=== PATIENT | male | born 1950 | race Caucasian/White ===

== ENCOUNTER 2021-07-13 00:24 | Day surgery (SDC) | payer MEDICARE, OTHER, SELFPAY ==
[2021-06-29 13:37] VITALS: BMI 31.9
[2021-07-13 07:44] VITALS: BP 115/71; PULSE 77; RESP 19; TEMP 35.9; O2SAT 97; BMI 30.4
[2021-07-13] MEDS: LACTATED RINGERS 1,000 ML 150 ML IV CONT (07:47)
--- NOTE | 2021-07-13 07:54 | WPDANESEPPF ---
Anes - Initial Pre Proc Eval Procedure: Operation Date: 07/13/21 08:30 Proposed Procedures p Screening Colonoscopy - Tramaine Zaragoza MD Date/Time: 07/13/21 07:54 Surgeon: Tramaine Zaragoza MD Pre Op Diagnosis: hx of colon polyps Patient Data Age: 70 Gender: M Height: 1.83 m Weight: 101.7 kg Last Vital Signs Temp 35.9 C L 07/13/21 07:44 Pulse 77 07/13/21 07:44 Resp 19 07/13/21 07:44 BP 115/71 07/13/21 07:44 Pulse Ox 97 07/13/21 07:44 Allergies Allergy/AdvReac Type Severity Reaction Status Date / Time No Known Allergies Allergy Verified 07/13/21 07:43 Home Medications Medication Instructions Recorded Confirmed Type allopurinol 300 mg tablet 300 mg PO DAILY #90 tablet 12/01/20 07/13/21 Rx atorvastatin 10 mg tablet 10 mg PO DAILY #90 tablet 03/28/21 07/13/21 Rx gabapentin 100 mg capsule 100 mg PO TID #270 cap 04/05/21 07/13/21 Rx metformin 500 mg tablet,extended See Rx Instructions .ROUTE 04/05/21 07/13/21 Rx release 24 hr .COMPLEX #180 tablet empagliflozin 25 mg tablet 25 mg PO DAILY #90 tablet 05/03/21 07/13/21 Rx Patient hx anesthesia problems: none Family hx anesthesia problems: none Results Review: All pre-operative results and documents have been reviewed as part of the pre-operative evaluation. [facility] Past Medical History Medical History Essential tremor Gout Mixed hyperlipidemia Obesity (BMI 30.0-34.9) Obstructive sleep apnea (adult) (pediatric) Other idiopathic peripheral autonomic neuropathy Type 2 diabetes mellitus without complications Urinary incontinence Surgical History Surgical History History of cervical discectomy (~2012) anterior spinal discectomy with osteophytectomy of cervical interspace 6/7 History of colonoscopy (~06/19/15) History of prostate surgery Family History Family History Mother Patient's mother is Family history of chronic obstructive pulmonary disease Father Patient's father is Malignant neoplasm of prostate Social History Social History Smoking status: Never smoker Alcohol intake: never Substance use: never Substance use type: does not use Living arrangements: with family Spiritual care concerns: No Anes - Eval Final PreProcedure Day of Procedure 07/13/21 07:54 Patient weight: obese Heart: regular rate and rhythm Lungs: clear to auscultation Airway: Mallampati scale class II Neurological: alert and oriented Last oral intake: >/= 8 hours ASA classification: III Emergent: no Anesthetic plan: proceed Anesthesia type and monitoring: general GIVS and standard monitoring Results Review: All pre-operative results and documents have been reviewed as part of the pre-operative evaluation. Informed Consent: The patient's anesthetic plan and its attendant risks and benefits were discussed with the patient/family/POA. Questions were solicited and answers provided to the satisfaction of the patient/family/POA.
[2021-07-13 08:21] LABS: Glucose Point of Care 165 mg/dl (65-105)
--- NOTE | 2021-07-13 08:21 | WPDGICN ---
Assessment and Plan Assessment and plan (1) Polyp of colon: Code(s): K63.5 - Polyp of colon Status: Acute Assessment and Plan: Patient has a history of adenomatous colon polyp removed from the colon 2015. Plan is for surveillance colonoscopy now and at 5 year intervals. GI Consult Note Consult date/time: 07/13/21 08:21 HPI: Aravind Mosher is a 70 year old male Presents for screening colonoscopy. Patient has a history of colon polyps at prior colonoscopy in 2016. Patient reports his current weight appetite bowel movements are normal. His family history is noncontributory he presents today for surveillance examination. Review of Systems Review of Systems: All systems reviewed & are unremarkable except as noted in HPI and below PMFSH Past Medical History Medical History Essential tremor Gout Mixed hyperlipidemia Obesity (BMI 30.0-34.9) Obstructive sleep apnea (adult) (pediatric) Other idiopathic peripheral autonomic neuropathy Type 2 diabetes mellitus without complications Urinary incontinence Surgical History Surgical History History of cervical discectomy (~2012) anterior spinal discectomy with osteophytectomy of cervical interspace 6/7 History of colonoscopy (~06/19/15) History of prostate surgery Family History Family History Mother Patient's mother is Family history of chronic obstructive pulmonary disease Father Patient's father is Malignant neoplasm of prostate Social History Social History Smoking status: Never smoker Alcohol intake: never Substance use: never Substance use type: does not use Living arrangements: with family Spiritual care concerns: No Meds Home Medications and Allergies Home Medications Medication Instructions Recorded Confirmed Type allopurinol 300 mg tablet 300 mg PO DAILY #90 tablet 12/01/20 07/13/21 Rx atorvastatin 10 mg tablet 10 mg PO DAILY #90 tablet 03/28/21 07/13/21 Rx gabapentin 100 mg capsule 100 mg PO TID #270 cap 04/05/21 07/13/21 Rx metformin 500 mg tablet,extended See Rx Instructions .ROUTE 04/05/21 07/13/21 Rx release 24 hr .COMPLEX #180 tablet empagliflozin 25 mg tablet 25 mg PO DAILY #90 tablet 05/03/21 07/13/21 Rx Allergies Allergy/AdvReac Type Severity Reaction Status Date / Time No Known Allergies Allergy Verified 07/13/21 07:43 Vital Signs Vital Signs - 24 hr 07/13/21 07:44 Temperature 96.7 F L Pulse Rate 77 Respiratory Rate 19 Blood Pressure 115/71 Pulse Oximetry 97 Exam Narrative: Physical exam reveals patient to be alert. Vital signs stable. HEENT exam is unremarkable. Patient is anicteric. Lungs are clear to auscultation and percussion. Heart is without murmur or extra sounds. Abdominal exam bowel sounds are present soft nontender with no hepatosplenomegaly. Digital external rectal exam is normal.
[2021-07-13 08:48] VITALS: BP 115/72; PULSE 72; RESP 20; O2SAT 95
[2021-07-13 08:58] VITALS: BP 106/73; PULSE 77; RESP 19; O2SAT 98
[2021-07-13 09:08] VITALS: BP 111/77; PULSE 68; RESP 22; O2SAT 99
== END 2021-07-13 09:12 | disposition home or self-care (01) ==
PROVIDERS: PCP Family Medicine; Visit Provider Internal Medicine Gastroenterology
PROC: 0DJD8ZZ Inspection of Lower Intestinal Tract, Via Natural or Artificial Opening Endoscopic (ICD-10-PCS; CPT 45378; principal; 2021-07-13 08:30)
DX: Z12.11 Encounter for screening for malignant neoplasm of colon (principal); Z86.010 Personal history of colon polyps; K64.8 Other hemorrhoids; K57.30 Diverticulosis of large intestine without perforation or abscess without bleeding; G25.0 Essential tremor; M10.9 Gout, unspecified; G47.33 Obstructive sleep apnea (adult) (pediatric); E78.5 Hyperlipidemia, unspecified; G60.8 Other hereditary and idiopathic neuropathies; E11.9 Type 2 diabetes mellitus without complications; Z79.84 Long term (current) use of oral hypoglycemic drugs; E66.9 Obesity, unspecified; Z68.30 Body mass index [BMI] 30.0-30.9, adult
CPT/HCPCS: G0105; 82948; J2704; J7120

== ENCOUNTER → 2022-11-07 08:37 | Outpatient (CLI) | payer MEDICARE, SELFPAY ==
--- NOTE | ~2022-11-07 | MR_ITS ---
EXAMINATION: MR lumbar spine wo con DATE: 11/07/2022 09:19 INDICATION: Low back pain radiating down both legs. Other idiopathic peripheral autonomic neuropathy. TECHNIQUE: Magnetic resonance imaging (MRI) of the lumbar spine was performed without intravenous con trast. Sequences included sagittal T2-weighted FSE, sagittal T2-weighted FS FSE, sagittal T1-weighted FSE, and axial T2-weighted FSE. COMPARISON: Lumbar spine radiographs 04/15/2011 FINDINGS: Bone alignment is normal. There is mild chronic anterior wedging of T12 and L1 vertebral kylah dies, likely physiologic. There are Schmorl's nodes at T10-T11 and T11-T12. There is mildly decreased disc height at L2-L3 and L3-L4. Epidural lipomatosis is noted. There is ligamentum flavum hypertroph y at the disc levels from L2-L3 through L5-S1. The osseous central spinal canal is developmentally sm all. The distal spinal cord signal intensity is normal. The conus medullaris is at T12. The following disc levels are specifically discussed: L1-L2: The disc is mildly bulging. There is moderate bilateral facet joint osteoarthritis. There is m ild bilateral neural foraminal stenosis. There is no central canal stenosis. L2-L3: The disc is bulging and has an annular fissure. There is severe bilateral facet joint osteoart hritis. There is mild right and moderate left neural foraminal stenosis. There is mild central canal stenosis. L3-L4: The disc is bulging and has an annular fissure. There is severe bilateral facet joint osteoart hritis. There is moderate bilateral neural foraminal stenosis. There is moderate central canal stenos is. L4-L5: The disc is bulging and has an annular fissure. There is severe bilateral facet joint osteoart hritis. There is moderate bilateral neural foraminal stenosis. There is severe central canal stenosis . L5-S1: The disc is bulging as an annular fissure. There is severe bilateral facet joint osteoarthriti s. There is mild bilateral neural foraminal stenosis. There is mild central canal stenosis. IMPRESSION: 1. Severe lumbar spondylosis. Reviewed, dictated and finalized at location A.
== END ==
PROVIDERS: PCP Family Medicine; Visit Provider Nurse Practitioner Family
DX: G90.09 Other idiopathic peripheral autonomic neuropathy (principal); M47.896 Other spondylosis, lumbar region
CPT/HCPCS: 72148

== ENCOUNTER 2023-02-04 06:29 | Day surgery (SDC) | payer MEDICARE, SELFPAY ==
--- NOTE | ~2023-02-04 | XR_ITS ---
EXAMINATION: XR fluoroscopy no charge DATE: 02/04/2023 7:30 CDT INDICATION: FERN L4-5 TRANSFORAMINAL EPIDURAL STERIOD INJ . TECHNIQUE: 4 fluoroscopic images, including cine clips of 12 and 20 images of the lumbar spine were o btained during bilateral L4-5 transforaminal epidural steroid injection performed by the surgeon. I w as not present in the operating room. Fluoroscopy exposure time was 12.7 seconds. Air Kerma 11.72 mGy . COMPARISON: None FINDINGS: Needle access laterally at L4 followed by contrast injection. IMPRESSION: Fluoroscopic documentation of bilateral L4-5 transabdominal epidural steroid injection. Please refer to the operative note for complete procedural details . Reviewed, dictated and finalized at location K. IMPRESSION: Fluoroscopic documentation of bilateral L4-5 transabdominal epidural steroid in [facility]. Please refer to the operative note for complete procedural details .
[2023-02-04 07:12] VITALS: BP 134/86; PULSE 67; RESP 14; TEMP 36.3; O2SAT 98
--- NOTE | 2023-02-04 07:21 | PM.HPGS ---
History of Present Illness History of Present Illness Consent: Risks, benefits, and alternatives have been discussed and questions answered. Patient agrees to proceed with procedure. Chief complaint: Spinal Stenosis with Neurogenic Claudication Narrative: Aravind Mosher is a 72 year old male in his typical state of health and no new medical, physiologic or symptomatic concerns with documented lumbar spinal stenosis and radiculopathy here for bilateral L4-5 transforaminal epidural steroid injection Under fluoroscopic guidance. Review of Systems Review of Systems: All systems reviewed & are unremarkable except as noted in HPI and below Constitutional: Constitutional: Reports as per HPI Cardiovascular: Cardiovascular: Reports no additional cardiovascular complaints Respiratory: Respiratory: Reports no additional respiratory complaints Musculoskeletal: Musculoskeletal: Reports as per HPI Neurologic: Reports system reviewed and no additional complaints, except as documented Psychiatric: Psychiatric: Reports no additional psychiatric complaints Allergic/Immunologic: Allergic/Immunologic: Reports no additional allergic/immunologic complaints [facility] Past Medical History Medical History Essential tremor Gout Mixed hyperlipidemia Obesity (BMI 30.0-34.9) Obstructive sleep apnea (adult) (pediatric) Other idiopathic peripheral autonomic neuropathy Type 2 diabetes mellitus without complications Urinary incontinence Surgical History Surgical History History of cervical discectomy (~2012) anterior spinal discectomy with osteophytectomy of cervical interspace 6/7 History of colonoscopy (~06/19/15) History of prostate surgery Family History Family History Mother Patient's mother is Family history of chronic obstructive pulmonary disease Father Patient's father is Malignant neoplasm of prostate Social History Social History Smoking status: Never smoker Alcohol intake: current Drinks per week: 12 Substance use: never Substance use type: does not use Lack of Transportation: No Lack of Food: Never True Current Housing: I Have Housing Concerned About Future Housing: No Difficulty Paying Gas/Electric Bills: No Difficulty Paying for Meds: No Currently Unemployed: No Education: Master's Degree or Higher Living arrangements: alone Spiritual care concerns: No Meds Home Medications and Allergies Home Medications Medication Instructions Recorded Confirmed Type allopurinol 300 mg tablet 300 mg PO DAILY #90 tabs 11/19/21 02/04/23 Rx metformin 500 mg tablet,extended See Rx Instructions .Route 04/16/22 02/04/23 Rx release 24 hr .COMPLEX #180 tabs empagliflozin 25 mg tablet 25 mg PO DAILY #90 tabs 10/14/22 02/04/23 Rx (Jardiance) atorvastatin 10 mg tablet 10 mg PO DAILY #90 tabs 01/09/23 02/04/23 Rx pregabalin 150 mg capsule 150 mg PO BID 30 days #60 caps 01/23/23 02/04/23 Rx Allergies Allergy/AdvReac Type Severity Reaction Status Date / Time No Known Allergies Allergy Verified 02/04/23 07:11 Vital Signs Vital Signs - 24 hr 02/04/23 07:12 Temperature 97.4 F L Pulse Rate 67 Respiratory Rate 14 Blood Pressure 134/86 Pulse Oximetry 98 Oxygen Delivery Room Air Exam Const: General: cooperative, healthy appearing, comfortable, no acute distress, well developed, alert, awake and Physically active Nutritional Appearance: well nourished Orientation/consciousness: patient oriented x3 HENMT: Head: normal to inspection Eyes: General: appearance normal, both eyes and all related structures Neck: Neck: normal visual inspection Chest: Chest palpation & inspection: normal inspection of the chest Resp: Effort & Inspection: normal resp
--- NOTE | 2023-02-04 07:27 | WPDHPUPDATE1 ---
History and Physical Update Update Date/Time: 02/04/23 07:27 History and Physical has been reviewed, including an updated exam of the patient. There are NO changes in the patient's condition. Risks, benefits, and alternatives have been discussed and questions answered. Patient agrees to proceed with procedure.
[2023-02-04 07:45] VITALS: BP 137/74; PULSE 64; RESP 16; O2SAT 96
[2023-02-04] MEDS: LIDOCAINE HCL 1% PF INJ 5 ML VIAL 3 ML INFILTRATE (07:46)
[2023-02-04] MEDS: LIDOCAINE HCL 2% PF INJ 5 ML VIAL 4 ML INFILTRATE (07:51)
[2023-02-04 07:55] VITALS: BP 142/75; PULSE 74; RESP 16; O2SAT 95
[2023-02-04 07:56] VITALS: BP 149/88; PULSE 75; RESP 14; O2SAT 100
--- NOTE | 2023-02-04 08:01 | W.PM.PROC2 ---
Procedure Note - Detailed Date of Procedure 02/04/23 Pre-op Diagnosis Spinal Stenosis with Neurogenic Claudication, Lumbosacral Radiculopathy Post-op Diagnosis Same Procedure Performed Bilateral L4-5 transforaminal epidural steroid injection under fluoroscopic guidance with contrast control. Surgeon Nate Norton MD Anesthesia Local Indications Bilateral lumbosacral radiculopathy and neurogenic claudication right greater than left. Description of Procedure INFORMED CONSENT: Risks, benefits and alternatives to the procedure were discussed in detail with the patient who expressed explicit understanding and consent to proceed. Patient was informed verbally and in written form regarding the risks associated with the procedure including the low risk of serious infection, bleeding/bruising, allergic reaction, nerve or organ injury, paralysis, procedural site pain or discomfort, worsening pain and/or mobility, failure to treat and/or disfigurement. The patient expressed explicit understanding and consent to proceed. All materials required for the procedure were available prior to procedure start. Site and side was marked prior to procedure and confirmed in the presence of the patient. PROCEDURE IN DETAIL: The patient was brought to the procedural suite and placed in the prone position. Patient was made comfortable with use of pillows under the head/chest, hips and ankles. Skin overlying the injection site was prepared broadly with ChloraPrep applicator and draped in a sterile manner. Aseptic technique was employed throughout. The endplates of the vertebral body at the site of interest were aligned in the AP view. Ipsilateral oblique angulation was utilized to better visualize the neuroforamen of interest. Local anesthesia was established by infiltration with approximately 5 mL of 2% lidocaine via a 1-1/2 inch 27-gauge needle. A 22-gauge 5.0 inch Zuleyka (pencil point) spinal needle was advanced until the needle approached the 6 o'clock position on the pedicle just superior to the exiting nerve root. on the right at L4-5. Lateral view was utilized to confirm appropriate position of the needle tip within the superior and posterior portion of the respective foramen. In an AP view, 1 mL of Omnipaque 300 contrast medium was injected after negative aspiration for CSF, blood or other bodily fluid, showing appropriate neurogram without evidence of intravascular or intrathecal spread of contrast. Digital subtraction imaging was used with an additional 1ml of the same contrast medium to confirm absence of intravascular contrast spread. A 1mL solution containing 5 mg of dexamethasone was injected after negative repeat aspiration. Appropriate spread of the injectate was confirmed with washout of previously injected contrast. No parasthesias were elicited. Needle was removed completely intact without difficulty. The same exact procedure was repeated for all remaining levels on the contralateral side, left L4-5 neural foramen, modified as necessary to accommodate for the new target location with identical findings and results and no evidence of complication. Images were saved and documented in the patient chart. Patient's skin was cleaned and sterile bandage applied. The patient tolerated the procedure well. The patient was transported to the recovery area in stable condition where they were observed for an appropriate amount of time prior to discharge, without evidence of complication. The patient was instructed to avoid excessive activity for the next 48 hours, including climbing and frequent use of stairs. Showers only for 48 hours. They were instructed not to drive or operate heavy machinery for 24 hours. They are to monitor for severe headaches, fevers, chills, night sweats, erythema/swelling at the site or any other signs of infection, bleeding/bruising, bowel or bladder changes as well as new pain, weakness or numbness in the upper or lower extremity. Should they notice
== END 2023-02-04 08:08 | disposition home or self-care (01) ==
PROVIDERS: PCP Family Medicine; Visit Provider Anesthesiology Pain Medicine
PROC: (CPT 64483; principal; 2023-02-04 07:30)
DX: M48.062 Spinal stenosis, lumbar region with neurogenic claudication (principal); M54.17 Radiculopathy, lumbosacral region
CPT/HCPCS: 64483 ×2; 99199

== ENCOUNTER 2023-02-25 08:44 | Emergency (ER) | payer MEDICARE, SELFPAY ==
[2023-02-25 08:46] VITALS: PULSE 94; RESP 18; TEMP 36.9; O2SAT 98
[2023-02-25 09:20] LABS: Appearance Urine Clear (Clear); Bilirubin Urine Negative (Negative); Blood Urine Negative (Negative); Color Urine Yellow (Yellow); Glucose Urine UA 3+ mg/dL (Negative); Ketones Urine Negative (Negative); Leukocyte Esterase Ur Negative LEU/UL (Negative); Nitrate Urine Negative (Negative); Protein Urine Negative (Negative); Specific Grav Ur 1.023 (1.001-1.035); Urobilinogen Urine 0.2 mg/dL (<2.0); pH Urine 5.5 (5.0-9.0)
[2023-02-25 09:21] LABS: Add Urine Microscopic? NO
--- NOTE | 2023-02-25 09:48 | ED.MALEGU ---
HPI - Male Genitourinary General Chief complaint: Urogenital-Male <MAXX Jang Last Filed: 02/25/23 11:18> Stated complaint: unable to urinate post op <Marietta Padron PA-C - Last Filed: 02/25/23 11:18> Time Seen by Provider: 02/25/23 08:55 <MAXX Jang Last Filed: 02/25/23 11:18> Source: patient <MAXX Jang Last Filed: 02/25/23 11:18> Mode of arrival: ambulatory <MAXX Jang Last Filed: 02/25/23 11:18> Limitations: no limitations <MAXX Jang Last Filed: 02/25/23 11:18> History of Present Illness HPI Narrative: Patient is a 72-year-old male who presents the ED with report of difficulty urinating. Patient reports he underwent what sounds like a laminectomy of L4, L5, S1 yesterday by Dr. Santi jay/ neurosurgery at [facility]. He states he became impatient after the surgery and did not want to wait to be able to urinate after the surgery. He states he was up all night last night attempting to urinate, but was only able to dribble out small amounts. Reporting pain and pressure in his lower abdomen. He was unable to urinate again this morning which prompted his presentation. He has not tried contacting his surgeon. He reports some soreness in his lower back from surgery, but otherwise states he has been doing well since the surgery. He denies any fevers, hematuria, nausea, vomiting, numbness, weakness, saddle anesthesia. <MAXX Jang Last Filed: 02/25/23 11:18> Related Data Allergies/Adverse reactions: Allergies Allergy/AdvReac Type Severity Reaction Status Date / Time No Known Allergies Allergy Verified 02/25/23 08:52 <MAXX Jang Last Filed: 02/25/23 11:18> Review of Systems Review of Systems: CONSTITUTIONAL: Denies fever, chills, or sweats. CARDIOVASCULAR: Denies chest pain. RESPIRATORY: Denies dyspnea. GASTROINTESTINAL: See HPI. GENITOURINARY: See HPI. SKIN: Denies rash or itching. MUSCULOSKELETAL: See HPI. NEUROLOGIC: Denies saddle anesthesia, headache, numbness, or weakness. <Marietta Padron PA-C - Last Filed: 02/25/23 11:18> All systems reviewed & are unremarkable except as noted in HPI and below <Marietta Padron PA-C - Last Filed: 02/25/23 11:18> [facility] Past Medical History Medical History: Medical History Essential tremor Gout Mixed hyperlipidemia Obesity (BMI 30.0-34.9) Obstructive sleep apnea (adult) (pediatric) Other idiopathic peripheral autonomic neuropathy Type 2 diabetes mellitus without complications Urinary incontinence <Marietta Padron PA-C - Last Filed: 02/25/23 11:18> Surgical History Surgical History: Surgical History History of cervical discectomy (~2012) anterior spinal discectomy with osteophytectomy of cervical interspace 6/7 History of colonoscopy (~06/19/15) History of prostate surgery <Marietta Padron PA-C - Last Filed: 02/25/23 11:18> Family History Family History: Family History Mother Patient's mother is Family history of chronic obstructive pulmonary disease Father Patient's father is Malignant neoplasm of prostate <Marietta Padron PA-C - Last Filed: 02/25/23 11:18> Social History Social History: Social History Smoking status: Never smoker Alcohol intake: current Drinks per week: 12 Substance use: never Substance use type: does not use Lack of Transportation: No Lack of Food: Never True Current Housing: I Have Housing Concerned About Future Housing: No Difficulty Paying Gas/Electric Bills: No Difficulty Paying for Meds: No Currently Unemployed: No Education:
[2023-02-25 09:53] LABS: Alanine Aminotransferase 37 U/L (6-50); Albumin Level 4.8 g/dL (3.5-5.1); Alkaline Phosphatase 56 U/L (38-126); Anion Gap 8 mmol/L (8-16); Aspartate Amino Transferase 33 U/L (17-59); Bilirubin,Total 0.6 mg/dL (0.2-1.3); Blood Urea Nitrogen 21 mg/dL (9-20); Carbon Dioxide 29 mmol/L (22-30); Chloride 101 mmol/L (98-107); Estimated CRCL calculation 82 ml/min; Estimated Glomerular Filt Rate > 60; Glucose 178 mg/dL (65-110); Potassium 4.6 mmol/L (3.4-5.0); Sodium 138 mmol/L (137-145)
[2023-02-25 09:54] LABS: Basophils Percent Auto 0.2 % (0.2-1.2); Eosinophils Percent Auto 0.1 % (0-4.4); Hematocrit 43.9 % (42.0-52.0); Hemoglobin 14.4 g/dL (14.0-18.0); Immature Granulocyte Absolute 0.03 K/mm3 (0.00-0.031); Immature Granulocyte Percent A 0.2 % (0-0.5); Lymphocytes Absolute Auto 1.08 K/mm3 (0.9-3.2); Lymphocytes Percent Auto 8.7 % (18.3-44.2); Mean Corpuscular HGB Conc 32.8 g/dl (32-36); Mean Corpuscular Hemoglobin 30.6 pg (26-34); Mean Corpuscular Volume 93.2 fl (80-100); Mean Platelet Volume 10.3 fl (7.4-10.4); Monocytes Absolute Auto 1.3 K/mm3 (0.1-0.6); Monocytes Percent Auto 10.3 % (2.6-8.5); Neutrophils Percent Auto 80.5 % (45.5-73.1); Platelet Count Result 229 k/mm3 (150-375); Red Blood Count 4.71 M/mm3 (4.6-6.20); White Blood Count 12.4 K/mm3 (4.5-10.0)
[2023-02-25] MEDS: TAMSULOSIN HCL 0.4 MG CAPSULE PO (11:16)
[2023-02-25 11:23] VITALS: BP 153/81; PULSE 82; RESP 18; O2SAT 99
== END 2023-02-25 11:25 | disposition home or self-care (01) ==
PROVIDERS: Emergency Medicine; Emergency Provider Physician Assistant; PCP Family Medicine
DX: N99.89 Other postprocedural complications and disorders of genitourinary system (principal); R33.8 Other retention of urine; E78.2 Mixed hyperlipidemia; E11.43 Type 2 diabetes mellitus with diabetic autonomic (poly)neuropathy; G47.33 Obstructive sleep apnea (adult) (pediatric); M10.9 Gout, unspecified; E66.9 Obesity, unspecified; Z68.32 Body mass index [BMI] 32.0-32.9, adult; Z79.84 Long term (current) use of oral hypoglycemic drugs
CPT/HCPCS: 36415; 51702; 80053; 81003; 85025; 99283; A9270

== ENCOUNTER 2023-08-05 13:39 | Outpatient (CLI) | payer MEDICARE, SELFPAY ==
--- NOTE | 2023-08-05 14:15 | NEURO_ITS ---
iMPRESSION: # Known diabetic complains of gait dysfunction. # No motor or sensory electrical responses obtained. # Needle/EMG exam neurogenic. # Compatible with severe neuropathy. Nerve Conduction Studies Anti Sensory Summary Table Stim Site NR Peak (ms) P-T Amp (?V) Site1 Site2 Delta-P (ms) Dist (cm) Jeffrey (m/s) Left Saphenous Anti Sensory (Ant Med Mall) NO RESPONSE 14cm NR 14cm Ant Med Mall 0.0 Right Saphenous Anti Sensory (Ant Med Mall) 14cm NR 14cm Ant Med Mall 0.0 Left Sup Fibular Anti Sensory (Ant Lat Mall) NO RESPONSE 14 cm NR 14 cm Ant Lat Mall 16.0 Right Sup Fibular Anti Sensory (Ant Lat Mall) NO RESPONSE 14 cm NR 14 cm Ant Lat Mall 16.0 Left Sural Anti Sensory (Lat Mall) NO RESPONSE Calf NR Calf Lat Mall 16.0 Right Sural Anti Sensory (Lat Mall) NO RESPONSE Calf NR Calf Lat Mall 16.0 Motor Summary Table Stim Site NR Onset (ms) O-P Amp (mV) Site1 Site2 Delta-0 (ms) Dist (cm) Jeffrey (m/s) Left Peroneal Motor (Vastus Med) NO RESPONSE Ankle NR Popit Ankle 0.0 Popit NR Right Peroneal Motor (Vastus Med) NO RESPONSE Ankle NR Popit Ankle 0.0 Popit NR Left Tibial Motor (Abd Us Brev) NO RESPONSE Ankle NR Knee NR Right Tibial Motor (Abd Us Brev) NO RESPONSE Ankle NR Knee Ankle 0.0 Knee NR F Wave Studies NR F-Lat (ms) L-R F-Lat (ms) Left Peroneal (Mrkrs) (EDB) NO RESPONSE NR Right Peroneal (Mrkrs) (EDB) NO RESPONSE NR Left Tibial (Mrkrs) (Abd Hallucis) NO RESPONSE NR Right Tibial (Mrkrs) (Abd Hallucis) NO RESPONSE NR EMG Side Muscle Nerve Root Ins Act Fibs Amp Dur Recrt Comment Right AntTibialis Dp Br Fibular L4-5 Nml Nml Nml >12ms +1 Right Gastroc Tibial S1-2 Nml Nml Nml >12ms +2 Right Fibularis Long Sup Br Fibular L5-S1 Nml Nml Nml >12ms +2 Right Flex Dig Long Tibial L5-S2 Nml Nml Nml >12ms +3 Right Ext Dig Brev Dp Br Fibular L5, S1 Nml Nml Nml >12ms +3 Left AntTibialis Dp Br Fibular L4-5 Nml Nml Nml >12ms +1 Left Gastroc Tibial S1-2 Nml Nml Nml >12ms +2 Left Fibularis Long Sup Br Fibular L5-S1 Nml Nml Nml >12ms +2 Left Flex Dig Long Tibial L5-S2 Nml Nml Nml >12ms +3 Left Ext Dig Brev Dp Br Fibular L5, S1 Nml Nml Nml >12ms +3 MTDD
== END 2023-08-05 13:40 | disposition home or self-care (01) ==
PROVIDERS: PCP Family Medicine; Visit Provider Nurse Practitioner Family
DX: G90.09 Other idiopathic peripheral autonomic neuropathy (principal)
CPT/HCPCS: 95886; 95911

== ENCOUNTER 2024-05-10 11:30 | Emergency (ER) | payer MEDICARE, SELFPAY ==
[2024-05-10 12:06] VITALS: BP 138/79; PULSE 76; RESP 16; TEMP 35.9; O2SAT 99
--- NOTE | 2024-05-10 12:54 | ED.URI ---
HPI - URI/Sore Throat General Chief Complaint: Upper Respiratory Infection Stated Complaint: Cough Time Seen by Provider: 05/10/24 12:54 Source: patient Mode of arrival: ambulatory Limitations: no limitations History of Present Illness HPI Narrative: 73 yo M presents with c/o cough, chest congestion for 2 wks. Coughing worse at night. Concerned he may have pneumoina. AFebrile. All systems reviewed and negative except as noted above. Related Data Allergies Allergy/AdvReac Type Severity Reaction Status Date / Time No Known Allergies Allergy Verified 05/10/24 12:14 Review of Systems Review of Systems: CONSTITUTIONAL: Denies fever, chills, or sweats. EYES: Denies visual changes, redness, or discharge. ENT: Denies rhinorrhea, congestion, sore throat, or otalgia. CARDIOVASCULAR: Denies chest pain, palpitations, or edema. RESPIRATORY: Reports cough, chest congestion, dyspnea with exertion GASTROINTESTINAL: Denies abdominal pain, nausea, vomiting, or diarrhea. GENITOURINARY: Denies dysuria or hematuria. SKIN: Denies rash or itching. MUSCULOSKELETAL: Denies back pain, joint pain, or myalgia. NEUROLOGIC: Denies headache, numbness, or weakness. PSYCHIATRIC: Denies anxiety or depression. All other systems reviewed are negative, except as documented in HPI. FOR[facility], [facility] Past Medical History Medical History (Updated 05/10/24 @ 13:01 by Jeimy Beaulieu NP) Peripheral neuropathy Carpal tunnel syndrome on both sides Lumbosacral radiculopathy Diabetic polyneuropathy Lumbosacral radiculopathy Obesity (BMI 30.0-34.9) Urinary incontinence Gout Essential tremor Mixed hyperlipidemia Obstructive sleep apnea (adult) (pediatric) Other idiopathic peripheral autonomic neuropathy Type 2 diabetes mellitus without complications Surgical History Surgical History History of lumbar laminectomy History of prostate surgery History of colonoscopy (~06/19/15) History of cervical discectomy (~2012) anterior spinal discectomy with osteophytectomy of cervical interspace 6/7 Family History Family History Mother Patient's mother is Family history of chronic obstructive pulmonary disease Father Patient's father is Malignant neoplasm of prostate Social History Social History Smoking status: Never smoker Alcohol intake: current Drinks per week: 14 Substance use: never Substance use type: does not use Do You Feel Safe in your Home?: Yes Lack of Transportation: No Lack of Food: Never True Current Housing: I Have Housing Concerned About Future Housing: No Difficulty Paying Gas/Electric Bills: No Difficulty Paying for Meds: No Currently Unemployed: No Education: Master's Degree or Higher Difficulty w/ Childcare or Family Care: No Living arrangements: alone Spiritual care concerns: No Comments At time of signature, agree with nursing past medical, surgical, social and family history. There is no relevant family history pertinent to the presenting complaint. Exam Narrative: GENERAL: This is a well-nourished, well-developed patient, in no apparent distress. HEAD: normocephalic, atraumatic. EYES: PERRL. Sclera clear/white. Vision is grossly intact. EARS: External ears normal, auditory canals clear and without drainage, TMs normal without perforation. Hearing grossly intact. NOSE: External nose normal with no obvious nasal discharge, nares without redness, no rhinorrhea. THROAT: Mucous membranes moist, posterior pharynx clear. NECK: Neck supple, non-tender without lymphadenopathy, masses or thyromegaly. CARDIOVASCULAR: Regular rate and rhythm without murmurs, gallops, or rubs. RESPIRATORY: mild crackles to bilateral upper lobes. Breath sounds equal bilaterally. No wheezes, rales, or rhonchi. SKIN: warm, Dry, intact with no suspicious lesions or rash, good texture and turgor. NEURO: awake, alert, and oriented to person, place and time. There were no obvious focal neurologic abnormalities. EXTREMITIES: No joint tenderness, effusion, or edema noted. Course Course Level of Care: Express Care Visit Vital Signs Vital signs: Vital Signs Temperature 35.9 C L 05/10/24 12:06 Pulse Rate 76 05/10/24 12:06 Respiratory Rate 16 05/10/24 12:06 Blood Pressure 138/79 05/10/24 12:06 Pulse Oximetry 99 05/10/24 12:06 Oxygen Delivery Room Air 05/10/24 12:06 Temperature 35.9 C L 05/10/24 12:06 Pulse Rate 76 05/10/24 12:06 Respiratory Rate 16 05/10/24 12:06 Blood Pressure 138/79 05/10/24 12:06 Pulse Oximetry 99 05/10/24 12:06 Oxygen Delivery Room Air 05/10/24 12:06 Reviewed MDM - URI/Sore Throat MDM Narrative Medical decision making narrative: Patient is aware of diagnosis, understands and agrees to treatment plan. Anticipatory guidance given. Patient agrees to follow-up as directed and is aware of reasons to seek care at the emergency department. Portions of this record may have been created with voice recognition software crackles to bilateral upper lobes. pt well appearing. no resp distress. offered chest x-ray but did not feel was necessary. carlos treat with abx. Discharge Plan Discharge Clinical Impression: Acute lower respiratory infection Clinical Impression: (Ruled Out): Spinal stenosis, lumbar region with neurogenic claudication Patient Disposition: Home, Self-Care Condition: Stable Instructions: Antibiotic Form, Community Acquired Pneumonia (ED) Additional Instructions: Take antibiotic as prescribed until gone. Take Tylenol or ibuprofen every 6-8 hours as needed for pain and fever. Drink at least 64 oz of water a day. Follow-up with your primary care physician as needed. Patient Language: Arabic Prescriptions: New benzonatate 200 mg capsule 200 mg PO TID PRN (Reason: cough) Qty: 20 0RF doxycycline hyclate 100 mg capsule 100 mg PO BID 7 Days Qty: 14 0RF No Action nortriptyline 25 mg capsule 25 mg PO QHS Qty: 60 6RF Rx Instructions: may increase to 2 capsules at bedtime after 2 weeks if necessary duloxetine 60 mg capsule,delayed release(DR/EC) 60 mg PO DAILY Qty: 90 3RF duloxetine 30 mg capsule,delayed release(DR/EC) 30 mg PO DAILY Qty: 90 3RF clobetasol 0.05 % cream 1 applic topical BID 28 Days Qty: 60 2RF tamsulosin [Flomax] 0.4 mg capsule 0.4 mg PO DAILY Qty: 7 0RF metformin 500 mg tablet extended release 24 hr See Rx Instructions .ROUTE .COMPLEX Qty: 180 3RF Dose Instruction: TAKE 1 TABLET BY MOUTH TWICE A DAY Rx Instructions: TAKE 1 TABLET BY MOUTH TWICE A DAY atorvastatin 10 mg tablet 10 mg PO DAILY Qty: 90 1RF pregabalin [Lyrica] 150 mg capsule 150 mg PO BID Qty: 180 1RF Jardiance 25 mg tablet 25 mg PO DAILY Qty: 90 1RF allopurinol 300 mg tablet 300 mg PO DAILY Qty: 90 1RF Follow-up/Referrals: Aravind Romero MD [Primary Care Provider] - Time of Disposition: 13:02
== END 2024-05-10 13:04 | disposition home or self-care (01) ==
PROVIDERS: Emergency Provider Nurse Practitioner Family; PCP Family Medicine
DX: J22 Unspecified acute lower respiratory infection (principal); E11.42 Type 2 diabetes mellitus with diabetic polyneuropathy; E78.2 Mixed hyperlipidemia; M10.9 Gout, unspecified; E66.9 Obesity, unspecified; Z68.32 Body mass index [BMI] 32.0-32.9, adult
CPT/HCPCS: 99213; G0463